=== PATIENT | female | born 2000 | race Caucasian/White ===

== ENCOUNTER 2021-04-10 05:22 | Emergency (ER) | payer BC ==
[2021-04-10] MEDS ORDERED: Ondansetron PF 4 MG/2 ML Vial ONE (05:44)
[2021-04-10 06:24] LABS: #Lymphocytes 0.6 thou/uL (1.20-3.40); #Monocytes 0.4 thou/uL (0.11-0.59); #Neutrophils 8.2 thou/uL (1.40-6.50); %Basophils 0.2 % (0.0-1.0); %Eosinophils 0.2 % (0.0-10.0); %Lymphocytes 6.6 % (28.0-48.0); %Monocytes 4.6 % (0.0-4.0); %Neutrophils 88.5 % (31.0-61.0); Hemoglobin 15.1 g/dL (12.0-16.0); Mean Corpuscular HGB CONC 35.5 g/dL (32.0-36.0); Mean Corpuscular Volume 87.3 fL (78.0-98.0); Mean Platelet Volume 6.9 fL (7.4-10.4); Platelet Count 302 thou/uL (130-400); RBC Distribution Width 11.5 % (11.5-14.5); Red Blood Cell (RBC) Count 4.86 mill/uL (4.00-5.20); White Blood Cell (WBC) Count 9.2 thou/uL (4.8-10.8)
[2021-04-10 06:31] LABS: BHCG - Serum Negative (NEGATIVE); Pregs Control Background? CLEAR/WHITE (CLR/WHITE); Pregs Control Bar Appear? YES (CONTROL BAR)
[2021-04-10 06:48] LABS: ALT (SGPT) 21 U/L (8-55); AST (SGOT) 22 U/L (5-30); Albumin 4.1 g/dL (3.5-5.0); Alkaline Phosphatase 89 U/L (40-100); BUN (Urea Nitrogen) 13 mg/dL (8.4-21.0); Bilirubin, Total 1.7 mg/dL (0.2-1.2); Calc. Creatinine Clearance 0 mL/min (70-130); Calcium 9.2 mg/dL (7.8-10.44); Carbon Dioxide 22 mmol/L (22-29); Globulin 3.2 g/dL (2.4-3.5); Glucose 109 mg/dL (70-105); Lipase 17 U/L (8-78); Protein, Total 7.3 g/dL (6.0-8.3)
[2021-04-10] MEDS ORDERED: Morphine 4 MG/ML VIAL ONE (06:52)
[2021-04-10 06:55] LABS: Chloride 105 mmol/L (98-107); Potassium 3.9 mmol/L (3.5-5.1); Sodium 137 mmol/L (136-145)
[2021-04-10 06:57] LABS: Anion Gap 14 mmol/L (10-20)
[2021-04-10 07:04] LABS: Bilirubin Negative (Negative); Blood, Urine Negative (Negative); Clarity Turbid (Clear); Glucose, Urine (Dipstick) Normal (Negative); Ketone, Urine Negative (Negative); Leukocyte 500 Leu/uL (Negative); Nitrite Negative (Negative); Protein, Urine (Dipstick) 10 mg/dL (Neg-Trace); RBC/HPF 0-3 HPF (0-3); Specific Gravity, Urine 1.023 (1.002-1.036); Squamous Epithelial 21-50 HPF (0-3); Urobilinogen Normal mg/dL (Less than 2); pH, Urine 6.5 (5.0-9.0)
[2021-04-10 07:05] LABS: Bacteria/HPF 1+ HPF (None Seen)
[2021-04-10] MEDS ORDERED: Pantoprazole 40 MG VIAL ONE (07:55)
[2021-04-10] MEDS ORDERED: Lidocaine Viscous Sol 2% 15 ml UD Cup ONE (07:55)
[2021-04-10] MEDS ORDERED: Mag-Al 1200 mg/1200 mg/30 ML UDCUP ONE (07:55)
== END 2021-04-10 10:16 | disposition home or self-care (01) ==
LOC: ERS 05:22 → EDBD 05:22 → ERS 10:16
DX: R10.13 Epigastric pain (principal); R11.2 Nausea with vomiting, unspecified
CPT/HCPCS: 76705; 80053; 81003; 81015; 83690; 84703; 85025; 96372; 96374; 96375; C9113; J0500; J2270; J2405

== ENCOUNTER 2021-05-18 08:00 | Emergency (ER) | payer BC ==
[2021-05-18 08:29] LABS: #Basophils 0.1 thou/uL (0.0-0.2); #Lymphocytes 1.4 thou/uL (1.20-3.40); #Monocytes 0.5 thou/uL (0.11-0.59); #Neutrophils 7.4 thou/uL (1.40-6.50); %Basophils 1.2 % (0.0-1.0); %Eosinophils 0.3 % (0.0-10.0); %Monocytes 5.5 % (0.0-4.0); %Neutrophils 77.9 % (31.0-61.0); Hemoglobin 14.2 g/dL (12.0-16.0); Mean Corpuscular HGB CONC 34.2 g/dL (32.0-36.0); Mean Corpuscular Hemoglobin 30.3 pg (25.0-35.0); Mean Corpuscular Volume 88.6 fL (78.0-98.0); Mean Platelet Volume 6.1 fL (7.4-10.4); Platelet Count 341 thou/uL (130-400); RBC Distribution Width 11.8 % (11.5-14.5); White Blood Cell (WBC) Count 9.6 thou/uL (4.8-10.8)
[2021-05-18 08:53] LABS: ALT (SGPT) 15 U/L (8-55); AST (SGOT) 15 U/L (5-30); Albumin 3.9 g/dL (3.5-5.0); Alkaline Phosphatase 88 U/L (40-100); Anion Gap 12 mmol/L (10-20); BUN (Urea Nitrogen) 11 mg/dL (8.4-21.0); Calc. Creatinine Clearance 0 mL/min (70-130); Calcium 9.4 mg/dL (7.8-10.44); Carbon Dioxide 23 mmol/L (22-29); Chloride 105 mmol/L (98-107); Globulin 2.9 g/dL (2.4-3.5); Glucose 89 mg/dL (70-105); Potassium 3.8 mmol/L (3.5-5.1); Protein, Total 6.8 g/dL (6.0-8.3); Sodium 136 mmol/L (136-145)
[2021-05-18] MEDS ORDERED: Ondansetron ODT 4 MG TAB ONE ×2 (09:11→09:12)
[2021-05-18 10:58] LABS: Bacteria/HPF None Seen HPF (None Seen); Bilirubin Negative (Negative); Blood, Urine Negative (Negative); Clarity Clear (Clear); Glucose, Urine (Dipstick) Normal (Negative); Ketone, Urine Negative (Negative); Leukocyte 75 Leu/uL (Negative); Nitrite Negative (Negative); Protein, Urine (Dipstick) 10 mg/dL (Neg-Trace); RBC/HPF 0-3 HPF (0-3); Specific Gravity, Urine 1.029 (1.002-1.036); Urobilinogen Normal mg/dL (Less than 2)
== END 2021-05-18 11:54 | disposition home or self-care (01) ==
LOC: ERS 08:00
DX: O21.9 Vomiting of pregnancy, unspecified (principal); O13.9 Gestational [pregnancy-induced] hypertension without significant proteinuria, unspecified trimester; Z3A.00 Weeks of gestation of pregnancy not specified
CPT/HCPCS: 36415; 80053; 81003; 81015; 84702; 85025; 99284; Q0162

== ENCOUNTER 2021-05-30 15:22 | Emergency (ER) | payer BC ==
[2021-05-30 16:00] LABS: #Lymphocytes 1.8 thou/uL (1.20-3.40); #Monocytes 0.5 thou/uL (0.11-0.59); #Neutrophils 4.6 thou/uL (1.40-6.50); %Basophils 0.2 % (0.0-1.0); %Eosinophils 0.3 % (0.0-10.0); %Lymphocytes 26.2 % (28.0-48.0); %Monocytes 6.7 % (0.0-4.0); %Neutrophils 66.6 % (31.0-61.0); Hemoglobin 14.5 g/dL (12.0-16.0); Mean Corpuscular HGB CONC 35.3 g/dL (32.0-36.0); Mean Corpuscular Hemoglobin 31.2 pg (25.0-35.0); Mean Corpuscular Volume 88.2 fL (78.0-98.0); Mean Platelet Volume 6.4 fL (7.4-10.4); Platelet Count 329 thou/uL (130-400); Red Blood Cell (RBC) Count 4.65 mill/uL (4.00-5.20); White Blood Cell (WBC) Count 6.9 thou/uL (4.8-10.8)
[2021-05-30 16:18] LABS: Bilirubin Negative (Negative); Blood, Urine Trace (Negative); Glucose, Urine (Dipstick) Negative (Negative); Ketone, Urine Negative (Negative); Leukocyte Large (Negative); Nitrite Negative (Negative); Protein, Urine (Dipstick) 30 mg/dL (Neg-Trace); Urobilinogen 0.2 mg/dL (Less than 2); pH, Urine 8.5 (5.0-9.0)
[2021-05-30 16:20] LABS: ALT (SGPT) 27 U/L (8-55); AST (SGOT) 25 U/L (5-30); Albumin 4.2 g/dL (3.5-5.0); Alkaline Phosphatase 91 U/L (40-100); Anion Gap 12 mmol/L (10-20); BUN (Urea Nitrogen) 8 mg/dL (8.4-21.0); Bilirubin, Total 0.8 mg/dL (0.2-1.2); Calc. Creatinine Clearance 0 mL/min (70-130); Carbon Dioxide 22 mmol/L (22-29); Chloride 104 mmol/L (98-107); Glucose 91 mg/dL (70-105); Lipase 18 U/L (8-78); Magnesium 1.8 mg/dL (1.7-2.2); Potassium 3.8 mmol/L (3.5-5.1); Protein, Total 7.2 g/dL (6.0-8.3); Sodium 134 mmol/L (136-145)
[2021-05-30 16:23] LABS: Clarity Hazy (Clear)
[2021-05-30 16:25] LABS: Bacteria/HPF 1+ HPF (None Seen); RBC/HPF 0-3 HPF (0-3); Squamous Epithelial 21-50 HPF (0-3)
== END 2021-05-30 18:02 | disposition home or self-care (01) ==
LOC: ERS 15:22
DX: O99.891 Other specified diseases and conditions complicating pregnancy (principal); R10.13 Epigastric pain; O21.9 Vomiting of pregnancy, unspecified; Z3A.01 Less than 8 weeks gestation of pregnancy
CPT/HCPCS: 36415; 80053; 81003; 81015; 83690; 83735; 84702; 85025; 86900; 86901; 99284

== ENCOUNTER 2021-06-03 16:49 | Emergency (ER) | payer BC | END 2021-06-03 18:54 | disposition left against medical advice (07) | LOC: ERS 16:49 | DX: Z53.21 Procedure and treatment not carried out due to patient leaving prior to being seen by health care provider (principal) ==

== ENCOUNTER 2021-06-11 10:02 | Emergency (ER) | payer BC ==
[2021-06-11 10:27] LABS: #Lymphocytes 0.5 thou/uL (1.20-3.40); #Monocytes 0.4 thou/uL (0.11-0.59); #Neutrophils 3.7 thou/uL (1.40-6.50); %Eosinophils 0.2 % (0.0-10.0); %Lymphocytes 10.3 % (28.0-48.0); %Monocytes 9.3 % (0.0-4.0); %Neutrophils 80.3 % (31.0-61.0); Mean Corpuscular HGB CONC 36.2 g/dL (32.0-36.0); Mean Corpuscular Hemoglobin 31.5 pg (25.0-35.0); Mean Corpuscular Volume 87.2 fL (78.0-98.0); Mean Platelet Volume 6.6 fL (7.4-10.4); Platelet Count 270 thou/uL (130-400); RBC Distribution Width 11.8 % (11.5-14.5); Red Blood Cell (RBC) Count 4.43 mill/uL (4.00-5.20); White Blood Cell (WBC) Count 4.6 thou/uL (4.8-10.8)
[2021-06-11 10:48] LABS: ALT (SGPT) 41 U/L (8-55); AST (SGOT) 32 U/L (5-30); Alkaline Phosphatase 86 U/L (40-100); Anion Gap 11 mmol/L (10-20); BUN (Urea Nitrogen) 5 mg/dL (8.4-21.0); Bilirubin, Total 0.8 mg/dL (0.2-1.2); Calc. Creatinine Clearance 0 mL/min (70-130); Calcium 9.3 mg/dL (7.8-10.44); Carbon Dioxide 22 mmol/L (22-29); Chloride 106 mmol/L (98-107); Globulin 2.6 g/dL (2.4-3.5); Glucose 96 mg/dL (70-105); Lipase 12 U/L (8-78); Protein, Total 6.6 g/dL (6.0-8.3); Sodium 135 mmol/L (136-145)
[2021-06-11 13:02] LABS: SARS-CoV-2 NAA Rapid Test DETECTED (NotDetected)
== END 2021-06-11 13:06 | disposition home or self-care (01) ==
LOC: ERS 10:02
DX: O98.511 Other viral diseases complicating pregnancy, first trimester (principal); U07.1 COVID-19; Z3A.08 8 weeks gestation of pregnancy; O99.511 Diseases of the respiratory system complicating pregnancy, first trimester; J45.909 Unspecified asthma, uncomplicated; O99.611 Diseases of the digestive system complicating pregnancy, first trimester; K21.9 Gastro-esophageal reflux disease without esophagitis
CPT/HCPCS: 36415; 80053; 83690; 85025; 93005; 99283; U0002

== ENCOUNTER 2021-06-11 23:18 | Emergency (ER) | payer BC ==
[2021-06-12] MEDS ORDERED: Acetaminophen 500 MG TAB ONE (00:47)
== END 2021-06-12 01:03 | disposition home or self-care (01) ==
LOC: ERS 23:18
DX: U07.1 COVID-19 (principal)
CPT/HCPCS: 71045

== ENCOUNTER 2021-06-15 17:44 | Emergency (ER) | payer BC ==
[2021-06-15] MEDS ORDERED: Ondansetron PF 4 MG/2 ML Vial ONE (17:57)
[2021-06-15 18:48] LABS: #Lymphocytes 1.2 thou/uL (1.20-3.40); #Monocytes 0.3 thou/uL (0.11-0.59); #Neutrophils 2.9 thou/uL (1.40-6.50); %Basophils 0.6 % (0.0-1.0); %Eosinophils 0.1 % (0.0-10.0); %Lymphocytes 26.9 % (28.0-48.0); %Monocytes 6.7 % (0.0-4.0); %Neutrophils 65.7 % (31.0-61.0); Hemoglobin 14.6 g/dL (12.0-16.0); Mean Corpuscular HGB CONC 35.4 g/dL (32.0-36.0); Mean Corpuscular Hemoglobin 30.7 pg (25.0-35.0); Mean Corpuscular Volume 86.6 fL (78.0-98.0); Mean Platelet Volume 8.1 fL (7.4-10.4); Platelet Count 242 thou/uL (130-400); RBC Distribution Width 12.1 % (11.5-14.5); Red Blood Cell (RBC) Count 4.74 mill/uL (4.00-5.20); White Blood Cell (WBC) Count 4.4 thou/uL (4.8-10.8)
[2021-06-15 20:12] LABS: Albumin 3.7 g/dL (3.5-5.0)
[2021-06-15 20:13] LABS: Chloride 106 mmol/L (98-107); Potassium 5.8 mmol/L (3.5-5.1); Sodium 133 mmol/L (136-145)
[2021-06-15 20:14] LABS: Calcium 8.9 mg/dL (7.8-10.44); Glucose 77 mg/dL (70-105)
[2021-06-15 20:15] LABS: Globulin 3.9 g/dL (2.4-3.5); Protein, Total 7.6 g/dL (6.0-8.3)
[2021-06-15 20:16] LABS: Anion Gap 12 mmol/L (10-20); Bilirubin, Total 0.8 mg/dL (0.2-1.2); Carbon Dioxide 21 mmol/L (22-29)
[2021-06-15 20:17] LABS: Alkaline Phosphatase 85 U/L (40-100)
[2021-06-15 20:18] LABS: Calc. Creatinine Clearance 0 mL/min (70-130)
[2021-06-15 20:19] LABS: AST (SGOT) 78 U/L (5-30); BUN (Urea Nitrogen) 7 mg/dL (8.4-21.0)
[2021-06-15 20:20] LABS: ALT (SGPT) 67 U/L (8-55); Magnesium 1.8 mg/dL (1.7-2.2)
[2021-06-15 20:21] LABS: Lipase 12 U/L (8-78)
== END 2021-06-15 21:42 | disposition home or self-care (01) ==
LOC: ERS 17:44
DX: O21.0 Mild hyperemesis gravidarum (principal); Z3A.09 9 weeks gestation of pregnancy
CPT/HCPCS: 80053; 83690; 83735; 85025; 96374; J2405

== ENCOUNTER 2021-07-24 20:03 | Emergency (ER) | payer SELFPAY ==
[2021-07-24] MEDS ORDERED: diphenhydrAMINE 25 MG CAP ONE (21:28)
[2021-07-24] MEDS ORDERED: Acetaminophen 500 MG TAB ONE (21:28)
== END 2021-07-24 22:02 | disposition home or self-care (01) ==
LOC: ERS 20:03
DX: O9A.211 Injury, poisoning and certain other consequences of external causes complicating pregnancy, first trimester (principal); S09.90XA Unspecified injury of head, initial encounter; O99.891 Other specified diseases and conditions complicating pregnancy; R55 Syncope and collapse; O99.511 Diseases of the respiratory system complicating pregnancy, first trimester; J45.909 Unspecified asthma, uncomplicated; Z3A.13 13 weeks gestation of pregnancy; W19.XXXA Unspecified fall, initial encounter; W22.8XXA Striking against or struck by other objects, initial encounter
CPT/HCPCS: 93005

== ENCOUNTER 2021-07-25 19:24 | Emergency (ER) | payer BC ==
[2021-07-25 20:57] LABS: Bilirubin Negative (Negative); Blood, Urine Negative (Negative); Clarity Turbid (Clear); Glucose, Urine (Dipstick) Normal (Negative); Ketone, Urine Negative (Negative); Leukocyte 75 Leu/uL (Negative); Mucous/LPF Rare LPF (<2+); Nitrite Negative (Negative); Protein, Urine (Dipstick) Negative (Neg-Trace); RBC/HPF 0-3 HPF (0-3); Specific Gravity, Urine 1.019 (1.002-1.036); pH, Urine 5.5 (5.0-9.0)
[2021-07-25 21:06] LABS: Bacteria/HPF 2+ HPF (None Seen)
[2021-07-26 11:52] LABS: Chlamydia by PCR Not Detected (NotDetected); GC by PCR Not Detected (NotDetected)
== END 2021-07-25 22:01 | disposition home or self-care (01) ==
LOC: ERS 19:24
DX: O99.611 Diseases of the digestive system complicating pregnancy, first trimester (principal); K30 Functional dyspepsia; O99.891 Other specified diseases and conditions complicating pregnancy; N89.8 Other specified noninflammatory disorders of vagina; O99.511 Diseases of the respiratory system complicating pregnancy, first trimester; J45.909 Unspecified asthma, uncomplicated; Z3A.13 13 weeks gestation of pregnancy; Z79.899 Other long term (current) drug therapy
CPT/HCPCS: 81003; 81015; 87480; 87491; 87510; 87591; 87660; 99284

== ENCOUNTER 2021-08-09 00:46 | Emergency (ER) | payer BC ==
[2021-08-09 02:48] LABS: Bilirubin Negative (Negative); Blood, Urine Negative (Negative); Clarity Turbid (Clear); Glucose, Urine (Dipstick) Normal (Negative); Ketone, Urine Negative (Negative); Leukocyte 250 Leu/uL (Negative); Nitrite Negative (Negative); Protein, Urine (Dipstick) Negative (Neg-Trace); RBC/HPF 0-3 HPF (0-3); Specific Gravity, Urine 1.022 (1.002-1.036); Squamous Epithelial 21-50 HPF (0-3); Urobilinogen Normal mg/dL (Less than 2); pH, Urine 6.5 (5.0-9.0)
[2021-08-09 03:00] LABS: Bacteria/HPF None Seen HPF (None Seen)
== END 2021-08-09 03:45 | disposition home or self-care (01) ==
LOC: ERS 00:46
DX: O99.891 Other specified diseases and conditions complicating pregnancy (principal); N89.8 Other specified noninflammatory disorders of vagina; O99.512 Diseases of the respiratory system complicating pregnancy, second trimester; J45.909 Unspecified asthma, uncomplicated; Z3A.15 15 weeks gestation of pregnancy
CPT/HCPCS: 81003; 81015; 99283

== ENCOUNTER 2022-06-16 05:54 | Day surgery (SDC) | payer BC ==
[2022-06-13 15:12] VITALS: BMI 45.8
[2022-06-16] MEDS ORDERED: Fentanyl 250 MCG/5 ML VIAL ONE (06:18)
[2022-06-16] MEDS ORDERED: Midazolam HCl 2 mg/2 ml Vial ONE (06:18)
[2022-06-16] MEDS ORDERED: Bupivacaine/Epinephrine 0.25% 30 ML VIAL ONE ×2 (06:40→06:41)
[2022-06-16] MEDS ORDERED: Lidocaine 1% PF 5 ML VIAL ONE (07:30)
[2022-06-16] MEDS ORDERED: NEOSTIGMINE 3 MG/3 ML SYR 3 MG/3 ML SYRINGE ONE (07:30)
[2022-06-16] MEDS ORDERED: Dexamethasone 20 MG/5 ML VIAL ONE (07:30)
[2022-06-16] MEDS ORDERED: PROPOFOL 200 MG/20 ML VIAL ONE (07:30)
[2022-06-16] MEDS ORDERED: Succinylcholine Chloride 100 MG/5 ML SYRINGE FS ONE (07:30)
[2022-06-16] MEDS ORDERED: Ondansetron PF 4 MG/2 ML Vial ONE (07:30)
[2022-06-16] MEDS ORDERED: Glycopyrrolate 0.2 MG/ML 5 ML SYRINGE ONE (07:30)
[2022-06-16] MEDS ORDERED: Rocuronium Bromide 10 MG/ML (10ML VIAL) ONE (07:30)
[2022-06-16] MEDS ORDERED: Sodium Chloride 0.9% 100 ML ONE (07:36)
[2022-06-16] MEDS ORDERED: CEFAZOLIN 2 GM VIAL ONE (07:36)
[2022-06-16] MEDS ORDERED: Fentanyl 100 MCG/2 ML VIAL ONE (08:50)
[2022-06-16] MEDS ORDERED: Promethazine HCl 25 MG/ML VIAL ONE (09:16)
== END 2022-06-16 10:58 | disposition home or self-care (01) ==
LOC: SDC 05:54
PROVIDERS: ATTEND Surgery
PROC: 0FT44ZZ Resection of Gallbladder, Percutaneous Endoscopic Approach (ICD-10-PCS; principal; 2022-06-16)
DX: K81.2 Acute cholecystitis with chronic cholecystitis (principal); K66.0 Peritoneal adhesions (postprocedural) (postinfection); J45.909 Unspecified asthma, uncomplicated; E66.01 Morbid (severe) obesity due to excess calories; Z68.42 Body mass index [BMI] 45.0-49.9, adult
CPT/HCPCS: 88304; C1776; J1100; J2250; J2405; J2550; J2704; J3010; J3490

== ENCOUNTER 2023-04-24 13:34 | Inpatient (IN) | payer BC ==
[2023-04-24 15:06] LABS: #Monocytes 0.3 thou/uL (0.11-0.59); #Neutrophils 3.5 thou/uL (1.40-6.50); %Lymphocytes 18.3 % (21.0-51.0); %Monocytes 6.2 % (0.0-10.0); %Neutrophils 75.1 % (42.0-75.0); Hematocrit 37.9 % (36.0-47.0); Hemoglobin 12.9 g/dL (12.0-16.0); Mean Corpuscular Hemoglobin 29.5 pg (27.0-31.0); Mean Corpuscular Volume 86.7 fl (78.0-98.0); Mean Platelet Volume 9.6 fL (7.4-10.4); Platelet Count 206 10x3/uL (130-400); RBC Distribution Width 12.8 % (11.5-14.5); Red Blood Cell (RBC) Count 4.37 mill/uL (4.20-5.40); White Blood Cell (WBC) Count 4.7 10x3/uL (4.8-10.8)
[2023-04-24 15:27] LABS: ALT (SGPT) 15 U/L (8-55); AST (SGOT) 16 U/L (5-34); Albumin 3.6 g/dL (3.5-5.0); Alkaline Phosphatase 88 U/L (40-110); Anion Gap 15 mmol/L (10-20); BUN (Urea Nitrogen) 7 mg/dL (7.0-18.7); Bilirubin, Total 0.8 mg/dL (0.2-1.2); Calc. Creatinine Clearance 0 mL/min (70-130); Calcium 8.3 mg/dL (7.8-10.44); Carbon Dioxide 19 mmol/L (22-29); Chloride 108 mmol/L (98-107); Estimated GFR 124; Globulin 2.9 g/dL (2.4-3.5); Glucose 79 mg/dL (70-105); Potassium 3.5 mmol/L (3.5-5.1); Protein, Total 6.5 g/dL (6.0-8.3); Sodium 138 mmol/L (136-145)
[2023-04-24] MEDS ORDERED: Ketorolac Tromethamine 30 MG/ML VIAL ONE (16:27)
[2023-04-24] MEDS ORDERED: diphenhydrAMINE 50 MG/ML VIAL ONE (16:27)
[2023-04-24] MEDS ORDERED: Metoclopramide HCl 10 MG/2 ML VIAL ONE (16:27)
[2023-04-24] MEDS ORDERED: Sodium Chloride 0.9% 100 ML ONE (18:09)
[2023-04-24] MEDS ORDERED: cefTRIAXone (ROCEPHIN) 2 GM VIAL IVPB SCH (18:15)
[2023-04-24] MEDS ORDERED: Vancomycin (BATCH) 2 GM in Premix 1 BAG IVPB SCH (18:15)
[2023-04-24] MEDS ORDERED: ACYCLOVIR SODIUM IVPB SCH (19:00)
[2023-04-24] MEDS ORDERED: SODIUM CHLORIDE 0.9% IVPB SCH (19:00)
[2023-04-24] MEDS ORDERED: Acetaminophen 500 MG TAB ONE (19:46)
[2023-04-24] MEDS ORDERED: Magnesium 2 GM/50 ML BAG (IN WATER) ONE (20:33)
[2023-04-24] MEDS ORDERED: methylPREDNISolone Sod Succ/PF 125 MG/2 ML VIAL ONE (20:34)
[2023-04-24] MEDS ORDERED: Valproate Sodium 1,000 MG in Sodium Chloride 0.9% 100 ML IVPB SCH (21:00)
[2023-04-24] MEDS ORDERED: Acetaminophen 325 MG TAB PO PRN (21:22)
[2023-04-24] MEDS ORDERED: Senokot S 8.6-50 MG TAB PO PRN (21:22)
[2023-04-24] MEDS ORDERED: HYDROcodone/Acetaminophen 5/325 mg Tablet PO PRN (21:22)
[2023-04-24] MEDS ORDERED: Calcium Carbonate 500 MG ChewTAB PO PRN (21:22)
[2023-04-25 05:06] LABS: Hematocrit 38.9 % (36.0-47.0); Hemoglobin 13.2 g/dL (12.0-16.0); Mean Corpuscular HGB CONC 33.9 g/dL (32.0-36.0); Mean Corpuscular Hemoglobin 29.3 pg (27.0-31.0); Mean Corpuscular Volume 86.3 fl (78.0-98.0); Platelet Count 222 10x3/uL (130-400); RBC Distribution Width 12.7 % (11.5-14.5); Red Blood Cell (RBC) Count 4.51 mill/uL (4.20-5.40); White Blood Cell (WBC) Count 3.6 10x3/uL (4.8-10.8)
[2023-04-25 05:21] LABS: Anion Gap 13 mmol/L (10-20); BUN (Urea Nitrogen) 5 mg/dL (7.0-18.7); Calc. Creatinine Clearance 272 mL/min (70-130); Calcium 8.4 mg/dL (7.8-10.44); Carbon Dioxide 21 mmol/L (22-29); Chloride 107 mmol/L (98-107); Delete Auto Diff?? YES; Estimated GFR 118; Glucose 117 mg/dL (70-105); Manual Diff?? YES; Sodium 137 mmol/L (136-145)
[2023-04-25 05:47] LABS: Band 2 % (5-11); CellaVision Operator ID lab.abc; Lymphocytes 7 % (21-51); Neutrophil 91 % (42-75); Platelet Adequacy Comment Platelets Normal; RBC Morphology Within Normal Limits; Total Cell Count 100
[2023-04-25] MEDS: Famotidine 20 MG TAB PO SCH ×2 (08:46→21:17)
[2023-04-25] MEDS ORDERED: cefTRIAXone\\ROCEPHIN 2 GM in Sodium Chloride 0.9% 100 ML IVPB SCH ×2 (09:00→18:00)
[2023-04-25] MEDS ORDERED: Morphine 2 MG/ML VIAL SLOW IVP PRN (09:20)
[2023-04-25] MEDS: Aluminum & Magnesium Hydroxide 60 ML, diphenhydrAMINE 150 MG, Lidocaine 2% Viscous Solu... SSW SCH ×3 (11:00→22:21)
[2023-04-25] MEDS: cefTRIAXone\\ROCEPHIN 2 GM in Sodium Chloride 0.9% 100 ML IVPB SCH ×2 (11:05→22:23)
[2023-04-25] MEDS: Ondansetron ODT 4 MG TAB PO PRN ×2 (11:15→18:52)
[2023-04-25] MEDS ORDERED: Lorazepam 2 MG/ML VIAL SLOW IVP SCH (11:45)
[2023-04-25] MEDS ORDERED: Midazolam HCl 2 mg/2 ml Vial SLOW IVP SCH (11:45)
[2023-04-25 13:55] LABS: CSF, Glucose 64 mg/dl (40-70); CSF, Protein 27 mg/dL (15-40)
[2023-04-25 14:31] LABS: CSF Source CSF; Clarity Clear (Clear); Tube # 4
[2023-04-25 14:55] LABS: Cell Count Non Hematic 25 %; Lymphocytes 75 %
[2023-04-25] MEDS: DAPTOmycin 1,000 MG in Sodium Chloride 0.9% 50 ML IVPB SCH (15:34)
[2023-04-25] MEDS: Fioricet 325/50/40 mg Tablet PO PRN (17:53)
[2023-04-25 18:56] LABS: Segmented Neutrophils 0 %
[2023-04-25] MEDS ORDERED: cefTRIAXone Sodium 2,000 MG in Syringe 0 ML IVPB SCH (21:00)
[2023-04-25] MEDS ORDERED: Melatonin 3 MG TAB PO PRN (23:40)
[2023-04-26] MEDS: Aluminum & Magnesium Hydroxide 60 ML, diphenhydrAMINE 150 MG, Lidocaine 2% Viscous Solu... SSW SCH ×4 (09:04→21:50)
[2023-04-26] MEDS: Famotidine 20 MG TAB PO SCH ×2 (09:05→21:50)
[2023-04-26] MEDS: cefTRIAXone\\ROCEPHIN 2 GM in Sodium Chloride 0.9% 100 ML IVPB SCH ×2 (09:05→22:11)
[2023-04-26] MEDS: Fioricet 325/50/40 mg Tablet PO PRN ×2 (09:12→15:33)
[2023-04-26] MEDS: DAPTOmycin 1,000 MG in Sodium Chloride 0.9% 50 ML IVPB SCH (11:40)
[2023-04-26] MEDS: Ondansetron ODT 4 MG TAB PO PRN ×2 (15:33→22:11)
[2023-04-26] MEDS: valACYclovir 500 MG TAB PO SCH (21:50)
[2023-04-26] MEDS: AcetaZOLAMIDE 250 MG TAB PO SCH (21:50)
[2023-04-27] MEDS: Fioricet 325/50/40 mg Tablet PO PRN (00:04)
[2023-04-27 07:39] VITALS: BMI 45.5
[2023-04-27 08:39] VITALS: TEMP 98.2
[2023-04-27] MEDS: Aluminum & Magnesium Hydroxide 60 ML, diphenhydrAMINE 150 MG, Lidocaine 2% Viscous Solu... SSW SCH ×2 (09:22→12:07)
[2023-04-27] MEDS: cefTRIAXone\\ROCEPHIN 2 GM in Sodium Chloride 0.9% 100 ML IVPB SCH (09:23)
[2023-04-27] MEDS: AcetaZOLAMIDE 250 MG TAB PO SCH (09:23)
[2023-04-27] MEDS: Famotidine 20 MG TAB PO SCH (09:23)
[2023-04-27] MEDS: valACYclovir 500 MG TAB PO SCH (09:23)
[2023-04-27] MEDS: Ondansetron ODT 4 MG TAB PO PRN (09:28)
[2023-04-27 12:36] VITALS: BP 106/72
[2023-04-27] MEDS: DAPTOmycin 1,000 MG in Sodium Chloride 0.9% 50 ML IVPB SCH (12:39)
[2023-04-28 17:09] LABS: VDRL, CSF Non Reactive (Non Rea:<1:1)
[2023-04-29 13:32] LABS: ANA Symphony (Qualitative) Negative (Negative); ANA Symphony (Quantitative) 0.2 Ratio (< 0.7 Negative); dsDNA IgG Antibody 1.2 IU/mL (<10 Negative)
[2023-04-29 14:15] LABS: Neuron Specific Enolase-CSF 11.8 ng/mL (<=21.5)
[2023-04-29 17:10] LABS: Myelin Basic Protein, CSF 0.8 ng/mL (0.0-2.9)
[2023-04-30 11:37] LABS: West Nile Virus IgG Ab - CSF Positive (Negative); West Nile Virus IgM Ab - CSF Negative (Negative)
== END 2023-04-27 13:42 | disposition home or self-care (01) | DRG 103 ==
LOC: ERS 13:34 → ERHOLD 20:29 → 2SW 23:37 → T4-B 04-25 18:54 → OBSVTOIN 04-27 08:38
PROVIDERS: ADMIT Student in an Organized Health Care Education/Training Program; ATTEND Internal Medicine
PROC: 009U3ZX Drainage of Spinal Canal, Percutaneous Approach, Diagnostic (ICD-10-PCS; principal; 2023-04-25)
PROC: B01B1ZZ Fluoroscopy of Spinal Cord using Low Osmolar Contrast (ICD-10-PCS; 2023-04-25)
DX: G93.2 Benign intracranial hypertension (principal); B00.2 Herpesviral gingivostomatitis and pharyngotonsillitis; Z68.42 Body mass index [BMI] 45.0-49.9, adult; E66.01 Morbid (severe) obesity due to excess calories; J45.909 Unspecified asthma, uncomplicated; Z79.899 Other long term (current) drug therapy; Z90.49 Acquired absence of other specified parts of digestive tract; Z90.89 Acquired absence of other organs; Z79.51 Long term (current) use of inhaled steroids; Z98.890 Other specified postprocedural states
CPT/HCPCS: 36415; 62270; 70450; 70491; 80048; 80053; 82945; 83605; 83873; 83916; 84145; 84157; 84703; 85025; 85060; 86038; 86140; 86225; 86316; 86592; 86612; 86635; 86698; 86788; 86789; 87040; 87070; 87205; 87529; 87798; 87899; 89051; 93005; 96365; 96366; 96367; 96368; 96375; 96376; G0378; J0133; J0696; J0878; J1200; J1885; J2060; J2272; J2405; J2765; J2930; J3370; J3370-JW; J3475; J3490; J7050; Q0162; Q0163; Q9967

== ENCOUNTER 2025-03-20 15:34 | Emergency (ER) | payer BC | END 2025-03-20 16:37 | disposition home or self-care (01) | LOC: ERS 15:34 | DX: O20.9 Hemorrhage in early pregnancy, unspecified (principal); I10 Essential (primary) hypertension; Z3A.11 11 weeks gestation of pregnancy | CPT/HCPCS: 76801 ==